=== PATIENT | female | born 1935 | race Hispanic/Latino ===

== ENCOUNTER 2019-10-25 13:48 | Outpatient (CLI) | payer OTHER, SELFPAY ==
--- NOTE | ~2019-10-25 | XR_ITS ---
EXAMINATION: XR knee LT min 4V DATE: 10/25/2019 14:19 INDICATION: Left knee pain. TECHNIQUE: 4 views of left knee were obtained. COMPARISON: None. FINDINGS: Bone alignment is normal. No fracture. There is mild osteoarthritis of medial and patellofe moral compartments. There is a small knee joint effusion. IMPRESSION: 1. Mild left knee osteoarthritis. 2. Small left knee joint effusion. Reviewed, dictated and finalized at location A.
== END 2019-10-25 13:49 | disposition home or self-care (01) ==
PROVIDERS: PCP Emergency Medicine; Visit Provider Emergency Medicine
DX: M17.12 Unilateral primary osteoarthritis, left knee (principal); M25.462 Effusion, left knee
CPT/HCPCS: 73564

== ENCOUNTER 2020-03-21 06:34 | Outpatient (NON) | payer OTHER, SELFPAY ==
[2020-03-22 13:19] LABS: SARS-CoV-2 RNA PCR Negative
== END 2020-03-21 06:35 ==
LOC: ANHCOVIDDT 06:34
PROVIDERS: PCP Emergency Medicine; Visit Provider Emergency Medicine
DX: Z20.828 Contact with and (suspected) exposure to other viral communicable diseases (principal); B34.9 Viral infection, unspecified
CPT/HCPCS: 87635; C9803; U0003

== ENCOUNTER 2020-10-24 17:05 | Emergency (ER) | payer OTHER, SELFPAY ==
[2020-10-24] VITALS (9 sets, daily range): BP systolic 137–184; BP diastolic 60–86; PULSE 60–68; RESP 13–20; O2SAT 96–100
--- NOTE | ~2020-10-24 | CT_ITS ---
EXAMINATION: CT cervical spine wo con DATE: 10/24/2020 18:34 INDICATION: Fall down 7 stairs. Large cephalohematoma. TECHNIQUE: Computed tomography (CT) of the cervical spine was performed without intravenous contrast. Automated exposure control and iterative reconstruction technique were employed. Exam dose: 267.36 mGy-cm total exam DLP. COMPARISON: None FINDINGS: There is levoscoliosis of the cervical spine. C1 and C2 are normally aligned and the odontoid process is intact. There is moderate degenerative disc disease and 2.7 mm retrolisthesis at C4-5. 2.4 mm anterolisthesis at C7-T1. No fracture or dislocation or locked facet. Degenerative changes at the apophyseal joints. Degenerative spurring of uncovertebral joints, most prominent at C4-5 on the right. IMPRESSION: Cervical spondylosis 2.7 mm retrolisthesis and moderate degenerative disc disease at C4-5 2.4 mm anterolisthesis at C7-T1 No evidence of cervical spine fracture Reviewed, dictated and finalized at Location A. Reviewed, dictated and finalized at location A.
--- NOTE | ~2020-10-24 | CT_ITS ---
CT thoracic spine wo con DATE: 10/24/2020 18:34 INDICATION: Fall. Back injury. TECHNIQUE: Axial CT images of the thoracic spine; sagittal and coronal reconstructions Exam dose: 267.36 mGy-cm total exam DLP. COMPARISON: None FINDINGS: There is dextroscoliosis of the upper thoracic spine and levoscoliosis of the mid to lower thoracic spine. There is diffuse osteopenia. There is degenerative spurring of the thoracic spine. There is likely chronic mild loss of height biconcavity of T4. There is likely chronic mild anterior wedging of T11. No acute fracture deformity of the thoracic spine is evident. Aortic, great vessel and coronary atherosclerosis. There is a large hiatal hernia. Numerous faceted gallstones are noted. High density of the liver parenchyma recommend clinical correlation for amiodarone effect versus sushma chromatosis. Approximately 3.2 x 6 mm right renal calculus. IMPRESSION: Thoracic scoliosis Diffuse osteopenia Degenerative change of the thoracic spine Likely mild chronic deformity of T11 compression deformities No acute fracture of the thoracic spine is evident Cholelithiasis Large hiatal hernia High hepatic parenchymal density suggesting amiodarone effect versus hemachromatosis Right nephrolithiasis Reviewed, dictated and finalized at Location A. Reviewed, dictated and finalized at location A. IMPRESSION: Thoracic scoliosis Diffuse osteopenia Degenerative change of the thoracic spine Likely mild chronic deformity of T11 compression deformities No acute fracture of the thoracic spine is evident Cholelithiasis Large hiatal hernia High hepatic parenchymal density suggesting amiodarone effect versus hemachroma tosis Right nephrolithiasis
--- NOTE | ~2020-10-24 | CT_ITS ---
EXAMINATION: CT brain wo con DATE: 10/24/2020 18:34 INDICATION: Patient fell down 7 stairs. Large hematoma at top of head TECHNIQUE: Computed tomography (CT) of the head was performed without intravenous contrast. The mA wa s adjusted according to patient size. Iterative reconstruction technique was employed. Exam dose: 26 7.36 mGy-cm total exam DLP. COMPARISON: None FINDINGS: There is a very large frontal cephalohematoma. No skull fracture is detected. No coup or contrecoup intracranial injury is evident. No intracranial mass lesion or hemorrhage, midl ine shift or mass effect effect or subdural or epidural hematoma is detected. Bilateral carotid siphon and supraclinoid internal carotid artery calcifications. There is nonspecific diminished attenuation of the subcortical and periventricular cerebral white mat ter, likely due to chronic small vessel ischemic changes. Moderate cerebral and cerebellar volume loss, consistent with patient age. The paranasal sinuses and mastoid air cells are unremarkable. IMPRESSION: Large frontal cephalhematoma; no skull fracture or acute intracranial finding Cerebral atherosclerosis and chronic small vessel ischemic changes of the cerebral white matter Reviewed, dictated and finalized at Location A. Reviewed, dictated and finalized at location A. IMPRESSION: Large frontal cephalhematoma; no skull fracture or acute intracran ial finding Cerebral atherosclerosis and chronic small vessel ischemic changes of the cereb ral white matter
--- NOTE | ~2020-10-24 | XR_ITS ---
XR shoulder LT min 2V DATE: 10/24/2020 18:39 INDICATION: Fall. Generalized left shoulder pain. TECHNIQUE: 5 views COMPARISON: None FINDINGS: There is a linear oblique fracture through the distal lateral articular aspect of the left clavicle with approximately 50% superior displacement of the lateral articular fragment. Diffuse osteopenia There is prominent osteoarthritic change and spurring at the left glenohumeral joint. IMPRESSION: Linear intra-articular oblique fracture of the lateral aspect of the left clavicle Prominent osteoarthritic change at the left glenohumeral joint Diffuse osteopenia Reviewed, dictated and finalized at location A. IMPRESSION: Linear intra-articular oblique fracture of the lateral aspect of th e left clavicle Prominent osteoarthritic change at the left glenohumeral joint Diffuse osteopenia
--- NOTE | ~2020-10-24 | CT_ITS ---
EXAMINATION: CT lumbar spine wo con DATE: 10/24/2020 18:34 INDICATION: Fell down 7 steps TECHNIQUE: Computed tomography (CT) of the lumbar spine was performed without intravenous contrast. A utomated exposure control and iterative reconstruction technique were employed. Exam dose: 267.36 mG y-cm total exam DLP. COMPARISON: None FINDINGS: There is diffuse osteopenia. There is moderately severe degenerative disc disease, posterior disc bulging and approximately 4-5 mm retrolisthesis at L1-2. Minimal retrolisthesis at L2-3. There is severe degenerative disc disease and borderline grade 2/grade 3 anterolisthesis at L5-S1. Bi lateral L5 pars interarticularis defects. No acute lumbar spine fracture is evident. Incidental finding of multiple faceted gallstones. Probable nonobstructive bilateral nephrolithiasis. 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 Reviewed, dictated and finalized at location A. IMPRESSION: Severe degenerative disc disease at L5-S1 Grade 2/grade 3 anterolisthesis at L5-S1 due to bilateral L5 pars interarticula ris defects Moderately severe degenerative disc disease, posterior disc bulging at approxim ately 4-5 mm retrolisthesis at L1-2 Minimal retrolisthesis at L2-3 Cholelithiasis Bilateral nephrolithiasis Diffuse osteopenia
--- NOTE | 2020-10-24 17:19 | ED.FALL ---
HPI - Fall General Chief Complaint: Fall Stated Complaint: Fall Time Seen by Provider: 10/24/20 17:11 History of Present Illness HPI Narrative: Patient does not speak Serbian, history primarily provided by her son. She is reportedly bent over to pick something up and fell head first down 6 stairs. SHe has pain in the left shoulder, forehead, and mid to low back. Noted to have swelling to the forehead and skin tears to the bilateral arms. SHe takes aspirin daily. No LOC. Related Data Home Medications Medication Instructions Recorded Confirmed amiodarone 10/24/20 atorvastatin 10/24/20 lisinopril 10/24/20 metoprolol succinate 10/24/20 10/24/20 Allergies Allergy/AdvReac Type Severity Reaction Status Date / Time No Known Allergies Allergy Unknown Unverified 10/24/20 17:16 Review of Systems Review of Systems: ROS unobtainable: Yes other (limited by language barrier) Cardiovascular: Cardiovascular: Denies chest pain Respiratory: Respiratory: Denies dyspnea Gastrointestinal: Gastrointestinal: Denies abdominal pain Musculoskeletal: Musculoskeletal: Reports back pain Neurologic: Denies dizziness [facility] Past Medical History Medical History (Updated 10/25/20 @ 00:00 by Background Daemon) Atrial fibrillation HTN (hypertension) Social History Social History (Updated 10/24/20 @ 17:25 by Luther Bacon MD) Living arrangements: with family Exam Const: General: healthy appearing, no acute distress and alert HENMT: Head: hematoma right frontal Ears: external ears normal and EAC's normal Face and sinus: normal facial exam Mouth: Yes lip normal Eyes: Pupils: Equal, round and reactive pupils present Neck: Neck: normal visual inspection Chest: Chest palpation & inspection: no tenderness Resp: Effort & Inspection: normal respiratory effort Auscultation: clear to auscultation bilaterally, no rales, no rhonchi and no wheezes Cardio: Jugular venous distension: no JVD Rate: regular rate Rhythm: regular rhythm Heart sounds: no murmurs GI: Inspection: non-distended GI Palp: Yes Soft to palpation and No Tenderness to palpation present (GI) Skin: Other: skin tears to bilateral forearms Neuro: General: patient oriented x3 and moves all extremities Speech: normal speech Extrem: Other: left shoulder tenderness Psych: Appearance: well kempt Affect: normal affect Course Vital Signs Vital signs: Vital Signs Pulse Rate 64 10/24/20 17:09 Respiratory Rate 19 10/24/20 17:09 Blood Pressure 184/86 H 10/24/20 17:09 Pulse Oximetry 96 10/24/20 17:09 Pulse Rate 60 10/24/20 20:14 Respiratory Rate 20 10/24/20 20:14 Blood Pressure 154/74 H 10/24/20 20:14 Pulse Oximetry 98 10/24/20 20:14 MDM - Fall MDM Narrative Medical decision making narrative: CT negative for acute injury. nondisplaced clavicle fracture. She and her son do not want anything for pain that would make falling more likely. I discussed return precautions with her son. He said that the family will watch her closely . Medical Records Attestation: I reviewed the patient's medical records. Lab Data Attestation: I reviewed the patient's lab results. Imaging Data Radiologist's impression: ITS Impressions Shoulder X-Ray 10/24/20 18:44 IMPRESSION: Linear intra-articular oblique fracture of the lateral aspect of the left clavicle Prominent osteoarthritic change at the left glenohumeral joint Diffuse osteopenia Head CT 10/24/20 18:52 IMPRESSION: Large frontal cephalhematoma; no skull fracture or acute intracranial finding Cerebral atherosclerosis and chronic small vessel ischemic changes of the cerebral white matter Cervical Spine CT 10/24/20 18:56 IMPRESSION: Cervical spondylosis 2.7 mm retrolisthesis and moderate degenerative disc disease at C4-5 2.4 mm anterolisthesis at C7-T1 No evidence of cervical spine fracture Thoracic Spine CT 10/24/20 19:04 IM
[2020-10-24] MEDS: ONDANSETRON INJ 4 MG/2 ML VIAL IV PUSH (20:08)
== END 2020-10-24 20:12 | disposition home or self-care (01) ==
PROVIDERS: Emergency Provider Emergency Medicine; PCP Emergency Medicine
DX: S42.032A Displaced fracture of lateral end of left clavicle, initial encounter for closed fracture (principal); S00.83XA Contusion of other part of head, initial encounter; Z79.82 Long term (current) use of aspirin; I10 Essential (primary) hypertension; I48.91 Unspecified atrial fibrillation; M85.812 Other specified disorders of bone density and structure, left shoulder; I67.2 Cerebral atherosclerosis; M47.812 Spondylosis without myelopathy or radiculopathy, cervical region; K44.9 Diaphragmatic hernia without obstruction or gangrene; K80.20 Calculus of gallbladder without cholecystitis without obstruction; N20.0 Calculus of kidney; M50.321 Other cervical disc degeneration at C4-C5 level; M85.88 Other specified disorders of bone density and structure, other site; M51.37 Other intervertebral disc degeneration, lumbosacral region; M51.36 Other intervertebral disc degeneration, lumbar region; W10.9XXA Fall (on) (from) unspecified stairs and steps, initial encounter
CPT/HCPCS: 70450; 72125; 72128; 72131; 73030; 96374; 99284; A4565; J2405

== ENCOUNTER 2021-01-27 20:26 | Emergency (ER) | payer OTHER, SELFPAY ==
--- NOTE | ~2021-01-27 | XR_ITS ---
EXAMINATION: XR wrist LT 2V DATE: 01/27/2021 23:14 INDICATION: Postreduction left wrist fracture. TECHNIQUE: Posteroanterior and lateral views of the left wrist were obtained. COMPARISON: 01/27/2021 at 8:50 PM FINDINGS: Slight decrease in degree of dorsal angulation of a nondisplaced likely extra articular fracture at t he distal left radial metaphysis with now 20 degrees dorsal tilt of the distal articular surface. The re is now minimal distraction of transverse fracture across the base of the ulnar styloid process. Fi berglas splinting material about the wrist and distal forearm. Polyarticular osteoarthritis which now appears severe at the first carpometacarpal joint and mild at the remaining joints as previously det bryan. IMPRESSION: 1. Minimal decrease in degree of dorsal tilt post reduction and splinting of a likely extra articular distal metaphyseal fracture of the left radius. 2. Minimally displaced ulnar styloid avulsion fracture. Reviewed, dictated and finalized at location A.
--- NOTE | ~2021-01-27 | XR_ITS ---
EXAMINATION: XR wrist LT 2V DATE: 01/27/2021 20:54 INDICATION: Left wrist pain post fall TECHNIQUE: Posteroanterior and lateral views of the left wrist were obtained. COMPARISON: none FINDINGS: Fracture extending transversely across the metaphyseal region of the distal left radius with dorsal i mpaction and dorsal angulation resulting in 24 degrees dorsal tilt of the distal articular surface. N o definitive intra-articular extension. Nondisplaced fracture suggests across the base of the ulnar s tyloid process. Moderate osteoarthritis at the first carpometacarpal joint. Mild osteoarthritis at th e distal radioulnar, wrist, triscaphe and several metacarpophalangeal joints. IMPRESSION: 1. Significant dorsal impaction and angulation of a likely extra articular fracture of the distal lef t radius. 2. Likely nondisplaced fracture across the base of the ulnar styloid process. Reviewed, dictated and finalized at location A. IMPRESSION: 1. Significant dorsal impaction and angulation of a likely extra articular frac ture of the distal left radius. 2. Likely nondisplaced fracture across the base of the ulnar styloid process.
[2021-01-27 20:36] VITALS: BP 169/77; PULSE 64; RESP 17; TEMP 36.4; O2SAT 100
--- NOTE | 2021-01-27 21:46 | ED.UPPEXIN ---
HPI - Extremity Injury (Upper) General Chief Complaint: Extremity Injury, Upper Stated Complaint: fall/wrist injury Time Seen by Provider: 01/27/21 21:34 Source: patient Mode of arrival: ambulatory Limitations: no limitations History of Present Illness HPI narrative: Patient is an 85-year-old female complaining of left wrist pain, 10 out of 10, dull, after falling forward and tried to break her fall with her left upper extremity. Patient denies any head, neck, chest, abdomen, pelvis or any other extremity pain/injury. Related Data Home Medications Medication Instructions Recorded Confirmed amiodarone 10/24/20 atorvastatin 10/24/20 lisinopril 10/24/20 metoprolol succinate 10/24/20 10/24/20 Allergies Allergy/AdvReac Type Severity Reaction Status Date / Time No Known Allergies Allergy Unknown Verified 01/27/21 21:25 Review of Systems Review of Systems: All systems reviewed & are unremarkable except as noted in HPI and below PMFSH Past Medical History Medical History (Updated 01/27/21 @ 23:11 by Jose Holman MD) Atrial fibrillation HTN (hypertension) Comments Past medical history: Hypertension, hyperlipidemia, cardiac arrhythmia Family history: Noncontributory Social history: Non-smoker no EtOH use Exam Const: General: cooperative, healthy appearing, comfortable, no acute distress, well developed, alert and awake; No confusion Orientation/consciousness: oriented to person, oriented to place, oriented to time, patient oriented x3 and No confusion Limitations: no limitations HENMT: Head: normal to inspection, normocephalic and atraumatic Ears: hearing grossly normal bilaterally, TM normal on the right and TM normal on the left General nose exam: Normal external nose present, Normal nares present and No nasal discharge present Face and sinus: normal facial exam Mouth: Yes Normal oral and palatal mucosa present, Yes lip normal, Yes tongue normal and Yes oropharynx normal Throat: posterior oropharynx normal, tonsils normal and uvula midline Eyes: General: appearance normal, both eyes and all related structures Pupils: Equal, round and reactive pupils present EOM: EOMs intact bilaterally Neck: Neck: normal visual inspection, full ROM, no lymphadenopathy and no meningeal signs Chest: Chest palpation & inspection: normal inspection of the chest Resp: Effort & Inspection: normal respiratory effort, able to speak in complete sentences, no respiratory distress and not tachypneic Auscultation: clear to auscultation bilaterally, no crackles, no rales, no rhonchi and no wheezes Cardio: Rate: regular rate Rhythm: regular rhythm GI: Inspection: normal to inspection GI Palp: No abdominal tenderness, Yes Soft to palpation, No Tenderness to palpation present (GI), No Guarding due to palpation present (GI), No Rigid due to palpation and No Rebound tenderness present Auscultation: normal bowel sounds : General: Yes no CVA tenderness Back/Spine/Pelvis: Back: no CVA tenderness Skin: General skin exam: normal color, no rashes or lesions noted, elasticity normal and turgor normal Neuro: General: oriented to person, oriented to place, oriented to time, patient oriented x3, tone normal, moves all extremities, Normal light touch and pain sensation, no meningeal signs, no focal motor deficits, CN's II-XI intact bilaterally and No confusion Cranial nerves: Yes Equal, round and reactive pupils present Speech: No Abnormal speech present Sensory Exam: No Sensory deficit (Neuro) Extrem: Other: Left wrist deformity, swelling,, decreased range of motion due to pain, pain on palpation, neurovascularly intact Psych: Appearance: grossly normal and well kempt Mental Status: mental status grossly normal Speech and movement: Normal speech and movement present Affect: normal affect Attitude: cooperative Thought process: Normal thought process present Thought content: Yes Normal thought content present Insight: Good in
[2021-01-27] MEDS: HYDROcodone/acetaminophen (*CRX) 5-325 MG TABLET 1 TAB PO (22:24)
[2021-01-27] MEDS: HYDROmorphone HCL INJ (*CRX) 1 MG/ML SYR 0.5 MG IM (22:52)
--- NOTE | 2021-01-27 23:10 | PC.NURSE ---
Pt. reports feeling light headed. pt. VS stables family at bedside and ERP notified.
[2021-01-27 23:11] VITALS: BP 143/96; PULSE 75; RESP 14; O2SAT 96
[2021-01-27] MEDS: ONDANSETRON HCL ODT 4 MG TABLET PO (23:15)
[2021-01-27 23:20] VITALS: BP 139/88; PULSE 74; RESP 19; O2SAT 97
== END 2021-01-27 23:20 | disposition home or self-care (01) ==
PROVIDERS: Emergency Provider Emergency Medicine
DX: S52.502A Unspecified fracture of the lower end of left radius, initial encounter for closed fracture (principal); S52.602A Unspecified fracture of lower end of left ulna, initial encounter for closed fracture; I48.91 Unspecified atrial fibrillation; I10 Essential (primary) hypertension; W19.XXXA Unspecified fall, initial encounter
CPT/HCPCS: 25605; 73100; 96372; 99285; A9270; J1170

== ENCOUNTER 2021-10-06 17:59 | Emergency (ER) | payer OTHER, SELFPAY ==
[2021-10-06 18:11] VITALS: BP 176/78; PULSE 60; RESP 16; TEMP 36.9; O2SAT 97
--- NOTE | 2021-10-06 18:36 | ED.URI ---
HPI - URI/Sore Throat General Chief Complaint: Upper Respiratory Infection Stated Complaint: cough Time Seen by Provider: 10/06/21 18:36 Source: family Mode of arrival: ambulatory Limitations: no limitations History of Present Illness HPI Narrative: 86-year-old female presents to the [facility] with her son with complaints of a cough x3 days. Denies any chest pain or shortness of breath. No abdominal pain. Has a history of hypertension Recently treated for skin infection with Keflex, has not been taking medications as prescribed denies any chest pain or shortness of breath. Denies abdominal pain. Denies fevers. Related Data Home Medications Medication Instructions Recorded Confirmed albuterol sulfate 90 mcg/actuation 2 inh inhalation Q4-6H PRN 10/06/21 10/06/21 aerosol inhaler difficulty breathing alendronate 70 mg tablet 1 tablet PO DAILY 10/06/21 10/06/21 amiodarone 200 mg tablet 1 tablet PO DAILY 10/06/21 10/06/21 atorvastatin 10 mg tablet 1 tablet PO DAILY 10/06/21 10/06/21 brimonidine 0.2 % eye drops 1 drp EACH EYE DAILY 10/06/21 10/06/21 cetirizine 10 mg tablet 1 tablet PO DAILY 10/06/21 10/06/21 dorzolamide 22.3 mg-timolol 6.8 1 drp EACH EYE DAILY 10/06/21 10/06/21 mg/mL eye drops ergocalciferol (vitamin D2) 1,250 1 cap PO DAILY 10/06/21 10/06/21 mcg (50,000 unit) capsule lisinopril 10 mg tablet 1 tablet PO DAILY 10/06/21 10/06/21 metoprolol succinate 50 mg 1 tablet PO DAILY 10/06/21 10/06/21 tablet,extended release 24 hr Allergies Allergy/AdvReac Type Severity Reaction Status Date / Time No Known Allergies Allergy Unknown Verified 10/06/21 18:01 Review of Systems Review of Systems: All systems reviewed & are unremarkable except as noted in HPI and below Constitutional: Constitutional: Reports no additional constitutional complaints, Denies chills and Denies fever(s) Eyes: Eyes: Reports no additional eye complaints ENT: Reports system reviewed and no additional complaints, except as documented Cardiovascular: Cardiovascular: Reports no additional cardiovascular complaints Respiratory: Respiratory: Reports as per HPI, Reports chest congestion, Reports cough, Denies dyspnea and Denies wheezing Gastrointestinal: Gastrointestinal: Reports no additional gastrointestinal complaints Musculoskeletal: Musculoskeletal: Reports no additional musculoskeletal complaints Integumentary/Breasts: Skin/Breast: Reports system reviewed and no additional complaints, except as docu Neurologic: Reports system reviewed and no additional complaints, except as documented Psychiatric: Psychiatric: Reports no additional psychiatric complaints Allergic/Immunologic: Allergic/Immunologic: Reports no additional allergic/immunologic complaints PMFSH Past Medical History Medical History (Updated 10/06/21 @ 18:47 by Heahter Carter APRN) Arthritis of left knee Atrial fibrillation HTN (hypertension) Plica syndrome of left knee Family History Family History Other HLD (hyperlipidemia) Heart disease Hypertension Social History Social History Alcohol intake: never Substance use: never Substance use type: does not use Comments At the time of my signature, I reviewed and agree with the nursing past medical, surgical, social, and family history. There is no relevant family history pertinent to the patient complaint. Exam Const: General: healthy appearing, no acute distress and alert Nutritional Appearance: well nourished Orientation/consciousness: patient oriented x3 Limitations: no limitations HENMT: Head: normal to inspection Ears: external ears normal Eyes: Pupils: Equal, round and reactive pupils present Neck: Neck: normal visual inspection, no lymphadenopathy and no meningeal signs Chest: Chest palpation & inspection: normal inspection of the chest Resp: Effort & Inspection: no
== END 2021-10-06 18:55 | disposition home or self-care (01) ==
PROVIDERS: Emergency Provider Nurse Practitioner; PCP Family Medicine
DX: J40 Bronchitis, not specified as acute or chronic (principal); M17.12 Unilateral primary osteoarthritis, left knee; I48.91 Unspecified atrial fibrillation; I10 Essential (primary) hypertension; M67.52 Plica syndrome, left knee
CPT/HCPCS: 99213; G0463

== ENCOUNTER 2021-10-07 22:02 | Emergency (ER) | payer OTHER, SELFPAY ==
--- NOTE | ~2021-10-07 | XR_ITS ---
XR chest 1V portable 10/08/2021 01:45 Indication: Cough Procedure: AP portable chest Comparison: 03/11/2016 Findings: There is a new left apical mass. Follow-up CT chest recommended to exclude parenchymal abno rmality. Shallow inspiration. Mildly elevated left diaphragm. No focal pneumonia, edema or effusion. No pneumothorax. There is a large hiatal hernia. 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 Correlation with CT recommended. 2: Hiatal hernia. Dr. Kp Salazar discussed with Dr. Ricco Jenkins at 10/08/2021 07:17 CDT. Reviewed, dictated and finalized at location A. 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 Correlation with CT recommended. 2: Hiatal hernia. Dr. Kp Salazar discussed with Dr. Ricco Jenkins at 10/08/2021 07:17 CDT.
[2021-10-07 22:10] VITALS: BP 195/74; PULSE 78; RESP 18; TEMP 36.3; O2SAT 96
[2021-10-08] MEDS: ALBUTEROL SULFATE NEB 2.5 MG/3 ML INH 15 MG INHALATION ×2 (01:33→04:17)
[2021-10-08] MEDS: IPRATROPIUM BR 0.02% INH SOLN 0.5 MG/2.5 ML VIAL 1.5 MG INHALATION (01:33)
[2021-10-08] MEDS: SODIUM CHLORIDE 0.9% IV 1,000 ML 999 ML IV CONT (01:34)
[2021-10-08 01:48] LABS: Basophils Percent Auto 0.4 % (0.2-1.2); Hemoglobin 13.6 g/dL (12.0-15.0); Immature Granulocyte Absolute 0.04 K/mm3 (0.00-0.031); Immature Granulocyte Percent A 0.5 % (0-0.5); Lymphocytes Absolute Auto 0.65 K/mm3 (0.9-3.2); Mean Corpuscular HGB Conc 32.4 g/dl (32-36); Mean Corpuscular Hemoglobin 30.3 pg (26-34); Mean Corpuscular Volume 93.5 fl (80-100); Mean Platelet Volume 10.2 fl (7.4-10.4); Monocytes Absolute Auto 0.3 K/mm3 (0.1-0.6); Monocytes Percent Auto 3.9 % (2.6-8.5); Neutrophils Absolute Auto 7.1 K/mm3 (1.3-6.7); Neutrophils Percent Auto 87.2 % (45.5-73.1); Platelet Count Result 172 k/mm3 (150-375); Red Blood Count 4.49 M/mm3 (4.2-5.4); Red Cell Distribution Width 14.5 % (11.5-14.5); White Blood Count 8.1 K/mm3 (4.5-10.0)
[2021-10-08 01:58] LABS: Anion Gap 8 mmol/L (8-16); Blood Urea Nitrogen 7 mg/dL (7-17); Calcium 8.3 mg/dL (8.4-10.2); Carbon Dioxide 27 mmol/L (22-30); Chloride 100 mmol/L (98-107); Estimated Glomerular Filt Rate > 60; Glucose 144 mg/dL (65-110); Potassium 3.6 mmol/L (3.4-5.0); Sodium 135 mmol/L (137-145)
[2021-10-08] MEDS: MECLIZINE HCL 25 MG TABLET PO (02:15)
[2021-10-08 02:58] LABS: SARS-CoV-2 RNA PCR Negative
[2021-10-08] MEDS: methylPREDNISolone SOD SUCC 125 MG VIAL IV PUSH (04:16)
[2021-10-08 04:19] VITALS: PULSE 84; RESP 22
[2021-10-08 05:32] VITALS: PULSE 88; RESP 20
--- NOTE | 2021-10-08 05:41 | ED.GENADULT ---
HPI - General Adult General Chief complaint: Dizziness Stated complaint: dizzy Time Seen by Provider: 10/08/21 01:01 History of Present Illness HPI narrative: Patient is an 86-year-old female who presents ER with 2 complaints. First complaint is dizziness. Began today. It is better when she is laying still but if she sits up or turns she has dizziness with nausea. She has had this intermittently throughout her life. She tried [id number] motion sickness medication without improvement. Patient also reports she was seen yesterday for cough. She did not have a COVID test. She was diagnosed with bronchitis and placed on doxycycline. She continues to have cough and some mild dyspnea. No fevers or chills or sweats. No chest pain or chest pressure. Related Data Home Medications Medication Instructions Recorded Confirmed albuterol sulfate 90 mcg/actuation 2 inh inhalation Q4-6H PRN 10/06/21 10/06/21 aerosol inhaler difficulty breathing alendronate 70 mg tablet 1 tablet PO DAILY 10/06/21 10/06/21 amiodarone 200 mg tablet 1 tablet PO DAILY 10/06/21 10/06/21 atorvastatin 10 mg tablet 1 tablet PO DAILY 10/06/21 10/06/21 brimonidine 0.2 % eye drops 1 drp EACH EYE DAILY 10/06/21 10/06/21 cetirizine 10 mg tablet 1 tablet PO DAILY 10/06/21 10/06/21 dorzolamide 22.3 mg-timolol 6.8 1 drp EACH EYE DAILY 10/06/21 10/06/21 mg/mL eye drops ergocalciferol (vitamin D2) 1,250 1 cap PO DAILY 10/06/21 10/06/21 mcg (50,000 unit) capsule lisinopril 10 mg tablet 1 tablet PO DAILY 10/06/21 10/06/21 metoprolol succinate 50 mg 1 tablet PO DAILY 10/06/21 10/06/21 tablet,extended release 24 hr Allergies Allergy/AdvReac Type Severity Reaction Status Date / Time No Known Allergies Allergy Unknown Verified 10/08/21 00:56 Review of Systems Review of Systems: All systems reviewed & are unremarkable except as noted in HPI and below Constitutional: Constitutional: Denies chills, Denies fatigue and Denies fever(s) ENT: Reports dizziness, Denies nasal congestion and Denies sore throat Cardiovascular: Cardiovascular: Denies chest pain, Denies rapid heart rate and Denies radiating jaw, neck or arm pain Respiratory: Respiratory: Reports cough and Reports dyspnea Gastrointestinal: Gastrointestinal: Denies abdominal pain, Reports nausea and Denies vomiting Neurologic: Denies headache(s), Denies focal weakness and Denies numbness PMFSH Past Medical History Medical History (Updated 10/08/21 @ 05:42 by Ricco Jenkins MD) Arthritis of left knee Atrial fibrillation HTN (hypertension) Plica syndrome of left knee Family History Family History Other HLD (hyperlipidemia) Heart disease Hypertension Social History Social History Alcohol intake: never Substance use: never Substance use type: does not use Exam Narrative: GENERAL: Well-appearing, well-nourished, and in no acute distress. HEAD: Normocephalic, atraumatic. EYES: PERRL and EOMI. CHEST: Coarse rhonchi bilaterally with inspiration expiration. No respiratory distress. HEART: Regular rate and rhythm. Normal peripheral pulses. ABDOMEN: Soft, nontender, nondistended. EXTREMITIES: Normal range of motion. No edema. SKIN: Warm, dry, no rash. NEURO: No focal deficits. Alert and oriented x3. PSYCH: Normal mood and affect. Course Course Emergency Course: Lungs clear after 2 hour-long nebulizer treatments. Patient will be discharged with supportive medications. Additionally meclizine is resolved patient's dizziness. Vital Signs Vital signs: Vital Signs Temperature 97.3 F L 10/07/21 22:10 Pulse Rate 78 10/07/21 22:10 Respiratory Rate 18 10/07/21 22:10 Blood Pressure 195/74 H 10/07/21 22:10 Pulse Oximetry 96 10/07/21 22:10 Oxygen Delivery Room Air 10/07/21 22:10 Temperature 97.3 F L 10/07/21 22:10 Pulse Rate 88 10/08/21 05
[2021-10-08 05:58] VITALS: BP 129/65; PULSE 97; RESP 18; O2SAT 92
== END 2021-10-08 05:53 | disposition home or self-care (01) ==
PROVIDERS: Emergency Provider Emergency Medicine; PCP Family Medicine
DX: R42 Dizziness and giddiness (principal); J40 Bronchitis, not specified as acute or chronic; R91.8 Other nonspecific abnormal finding of lung field; Z20.822 Contact with and (suspected) exposure to COVID-19; I48.91 Unspecified atrial fibrillation; I10 Essential (primary) hypertension; M67.52 Plica syndrome, left knee; M17.12 Unilateral primary osteoarthritis, left knee; K44.9 Diaphragmatic hernia without obstruction or gangrene
CPT/HCPCS: 36415; 71045; 80048; 85025; 94640; 96361; 96374; 99284; A9270; C9803; J2930; J7030; U0003; U0005

== ENCOUNTER 2021-10-19 15:01 | Outpatient (CLI) | payer OTHER, SELFPAY ==
--- NOTE | ~2021-10-19 | CT_ITS ---
EXAMINATION: CT diagnostic chest wo con DATE: 10/19/2021 15:23 INDICATION: Left apical mass suggested on 10/08/2021 portable AP chest TECHNIQUE: Computed tomography (CT) of the chest was performed without intravenous contrast. Automate d exposure control and iterative reconstruction technique were employed. Exam dose: 109.80 mGy-cm to mayelin exam DLP. COMPARISON: 10/08/2021 portable AP chest 03/11/2016 PA and lateral chest FINDINGS: Cardiomegaly. Aortic calcification and mitral valve area. Coronary artery calcifications. T horacic aortic and great vessel calcifications. No pericardial or pleural effusion. No pulmonary infiltrate or consolidation or pulmonary mass lesion is noted. Calcified bilateral pulmo nary granulomas consistent with old granulomatous disease. No hilar or mediastinal mass lesion or lymphadenopathy. Large hiatal hernia. Numerous faceted gallstones fill the gallbladder lumen. Normal splenic size. Normal morphology of the adrenal glands. 5 mm right renal calculus is noted. There is probably calcification at the origins of the celiac and superior mesenteric arteries and prominent abdominal aortic calcification. 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 Moderate compression fracture deformity of T4. Mild anterior wedge compression fracture deformity of T11. Degenerative spurring of the thoracic spine. Osteopenia. IMPRESSION: No left apical mass density is evident. No pulmonary mass lesion. Cardiomegaly Large hiatal hernia Cholelithiasis 5 mm nonobstructing right renal calculus Compression fracture deformities of T4 and T11 Reviewed, dictated and finalized at [facility]. Reviewed, dictated and finalized at [facility].
== END 2021-10-19 15:02 | disposition home or self-care (01) ==
PROVIDERS: PCP Family Medicine; Visit Provider Family Medicine
DX: R91.8 Other nonspecific abnormal finding of lung field (principal); I51.7 Cardiomegaly; K44.9 Diaphragmatic hernia without obstruction or gangrene; K80.20 Calculus of gallbladder without cholecystitis without obstruction; N20.0 Calculus of kidney; S22.040A Wedge compression fracture of fourth thoracic vertebra, initial encounter for closed fracture; S22.050A Wedge compression fracture of T5-T6 vertebra, initial encounter for closed fracture; S22.060A Wedge compression fracture of T7-T8 vertebra, initial encounter for closed fracture; S22.070A Wedge compression fracture of T9-T10 vertebra, initial encounter for closed fracture; S22.080A Wedge compression fracture of T11-T12 vertebra, initial encounter for closed fracture; X58.XXXA Exposure to other specified factors, initial encounter
CPT/HCPCS: 71250

== ENCOUNTER 2024-03-02 11:11 | Outpatient (CLI) | payer OTHER, SELFPAY ==
--- NOTE | ~2024-03-02 | XR_ITS ---
XR chest 2V 03/02/2024 11:39 Indication: Cough. Back pain. Congestion. Procedure: 2 view chest Comparison: No prior studies for comparison. Findings: Large hiatal hernia with air-fluid level. Elevated left diaphragm. There are coarse interst itial changes of the lung periphery, unchanged, likely chronic interstitial lung disease. There is ac centuated thoracic kyphosis with moderate thoracic spondylosis. No acute focal pneumonia, edema or ef fusion. Impression: 1: No acute cardiopulmonary disease. 2: Probable chronic interstitial lung disease stable. 3: Large hiatal hernia. Reviewed, dictated and finalized at [facility]. Impression: 1: No acute cardiopulmonary disease. 2: Probable chronic interstitial lung disease stable. 3: Large hiatal hernia.
== END 2024-03-02 11:12 | disposition home or self-care (01) ==
PROVIDERS: PCP Family Medicine; Visit Provider Family Medicine
DX: R05.9 Cough, unspecified (principal); K44.9 Diaphragmatic hernia without obstruction or gangrene
CPT/HCPCS: 71046